=== PATIENT | female | born 1975 | race American Indian/Alaskan Native ===

== ENCOUNTER 2019-11-01 13:56 | Outpatient (CLI) | payer OTHER ==
--- NOTE | 2019-11-01 17:20 | Ultrasound Report ---
BILATERAL DIGITAL DIAGNOSTIC MAMMOGRAM WITH CAD -- 11/01/2019 BILATERAL LIMITED BREAST ULTRASOUND INDICATION: Patient presents for evaluation of bilateral clear nipple discharge. TECHNIQUE: Digital bilateral mammographic imaging was performed. Spot compression views were obtaine d. Limited ultrasound was performed. This examination was interpreted with the benefit of Computer- ded Detection (CAD) analysis. COMPARISON: Prior mammogram 10/07/2018 FINDINGS: Breast Density: The breasts are heterogeneously dense, which may obscure small masses. MAMMOGRAPHIC FINDINGS: There is no evidence of dominant mass, suspicious calcifications or architectu ral distortion in either breast. There has been no significant change compared with the prior examina tion. No mammographic abnormality is identified to account for bilateral clear nipple discharge, ther efore targeted subareolar ultrasound subsequently performed. ULTRASOUND FINDINGS: Targeted ultrasound evaluation was performed of the area of interest. Right breast: Targeted ultrasound of the right breast reveals duct ectasia in the 6:00 subareolar pos ition with an intraductal mass measuring up to 3 mm. A focus of internal vascularity is demonstrated. Left breast: Targeted ultrasound of the subareolar left breast reveals normal fibroglandular tissue. No suspicious cystic or solid lesion identified. IMPRESSION: 1. A 3 mm intraductal mass in the 6:00 subareolar right breast may account for reported clear nipple discharge and is considered suspicious for malignancy, ultrasound-guided biopsy is recommended. 2. No suspicious mammographic or sonographic abnormality to account for left nipple discharge, theref ore clinical correlation is recommended. Follow up recommendation: Biopsy BI-RADS Category 4: Suspicious for Malignancy. A "normal" or negative report should not discourage follow up or biopsy of a clinically significant f inding. A written summary of these findings will be mailed to the patient. The patient will be entered into a mammography reporting system which will generate a reminder letter for the patient's next appointmen t at the appropriate interval. According to the [employer], yearly mammograms are recommended starting at age 40 and continuing as long as a woman is in good health. Breast MRI is recommended for women with an chucky roximately 20-25% or greater lifetime risk of breast cancer, including women with a strong family his tory of breast or ovarian cancer and women who have been treated for Hodgkin's disease. Signer Name: Danni Sierra MD Signed: 11/01/2019 5:16 PM Workstation Name: [id number]
== END 2019-11-01 13:57 | disposition home or self-care (01) ==
LOC: SPVWC 13:56
PROVIDERS: ATTEND Surgery
DX: N60.41 Mammary duct ectasia of right breast (principal); N63.41 Unspecified lump in right breast, subareolar
CPT/HCPCS: 77066

== ENCOUNTER 2019-11-23 10:06 | Outpatient (CLI) | payer OTHER ==
--- NOTE | 2019-11-23 12:14 | Ultrasound Report ---
ULTRASOUND-GUIDED VACUUM-ASSISTED NEEDLE CORE BIOPSY RIGHT BREAST WITH CLIP PLACEMENT CLINICAL: A retroareolar intraductal mass at 6:00 FINDINGS: The procedure was explained to the patient and informed consent was obtained. Ultrasound demonstrated the previously identified dilated duct with a 4 mm intraductal mass at 6:00.. I marked the breast with a felt tip marker and a timeout was called. The skin was prepped with Chloro -Prep and anesthetized with 1% lidocaine. Vacuum-assisted needle core biopsy was performed through tiny dermatotomy using ultrasound guidance, 2% lidocaine with epinephrine for deep anesthesia and a 13-gauge Mammotome Elite biopsy device. Multi ple cores were obtained and placed in formalin. A hydromark clip was deployed at the biopsy site. The patient tolerated the procedure well and there were no apparent convocations. Hemostasis was achi eved with minimal effort and a sterile dressing was applied. A post procedure mammogram demonstrated concordant clip deployment. She left the department in good c ondition and was given instructions for wound care and follow-up. IMPRESSION: Uncomplicated ultrasound guided needle core biopsy with clip placement right breast. Signer Name: Mike Orozco MD Signed: 11/23/2019 12:09 PM Workstation Name: [id number]
--- NOTE | 2019-11-23 12:16 | Mammography Report ---
DIGITAL DIAGNOSTIC MAMMOGRAM WITH CAD, 11/23/2019 INDICATION: POST CLIP RT TECHNIQUE: Digital right mammographic imaging was performed. This examination was interpreted with the benefit of Computer-aided Detection analysis. COMPARISON: 11/01/2019 FINDINGS: Breast Density: The breasts are heterogeneously dense, which may obscure small masses. A retroareolar biopsy clip is identified at 6:00 and correlates with the site of today's biopsy. IMPRESSION: Concordant clip deployment. Follow up recommendation: No recall. Post biopsy imaging. A "normal" or negative report should not discourage follow up or biopsy of a clinically significant f inding. A written summary of these findings will be mailed to the patient. The patient will be entered into a mammography reporting system which will generate a reminder letter for the patient's next appointmen t at the appropriate interval. According to the [employer], yearly mammograms are recommended starting at age 40 and continuing as long as a woman is in good health. Breast MRI is recommended for women with an chucky roximately 20-25% or greater lifetime risk of breast cancer, including women with a strong family his tory of breast or ovarian cancer and women who have been treated for Hodgkin's disease. Signer Name: Mike Orozco MD Signed: 11/23/2019 12:11 PM Workstation Name: [id number]
== END 2019-11-23 10:07 | disposition home or self-care (01) ==
LOC: SPVWC 10:06
PROVIDERS: ATTEND Surgery
DX: N63.13 Unspecified lump in the right breast, lower outer quadrant (principal)
CPT/HCPCS: 88305